=== PATIENT | female | born 1935 | race Caucasian/White ===

== ENCOUNTER 2017-01-14 14:14 | Outpatient (CLI) | payer MEDICARE, OTHER ==
--- NOTE | 2017-01-18 13:05 | DEXA Report ---
REVISED: THIS REPORT WAS ORIGINALLY SIGNED ON 01/24/2017 @ 1030. NO CHANGES WERE MADE TO THE REPORT. THE ORIGINAL [facility] REQUISITION WAS REPRINTED ON . DEXA SCAN: 01/14/2017 INDICATION: Seropositive rheumatoid arthritis. TECHNIQUE: Dual energy x-ray absorptiometry (DXA) was performed on a [employer] system. Regions measured are the AP spine, femoral neck, and, if needed, forearm. COMPARISON: None. In accordance with the International Society for Clinical Densitometry (ISCD) guidelines, data from previous exams may be reanalyzed using current recommendations and techniques. This is done to allow a more accurate basis for comparison with the current study. FINDINGS Data for the lumbar spine is as follows: REGION BMD (g/cm/cm) T-SCORE Z-SCORE L1 0.798 -2.8 -1.5 L2 1.068 -1.1 0.2 L3 1.277 0.6 1.9 L4 1.267 0.6 1.8 TOTAL 1.104 -0.6 0.6 NOTE: All evaluable vertebrae are used for classification. Data for the hip is as follows: REGION BMD (g/cm/cm) T-SCORE Z-SCORE Neck 0.887 -1.1 0.7 TOTAL 0.870 -1.1 0.5 NOTE: The femoral neck or total proximal femur, whichever is lowest, is used for classification. IMPRESSION: THE WHO CLASSIFICATION BASED ON THE INTERNATIONAL REFERENCE STANDARD IS OSTEOPOROSIS. FRACTURE RISK IS HIGH. RECOMMENDATION: Patients with diagnosis of osteoporosis or osteopenia should have regular bone mineral density assessment. For those eligible for Medicare, routine testing is allowed once every 2 years. Testing frequency can be increased for patients who have rapidly progressing disease or for those who are receiving medical therapy to restore bone mass. COMMENT: World Health Organization (WHO) definitions for osteoporosis and osteopenia: NORMAL BMD: T-score at -1.0 or higher, fracture risk is low. OSTEOPENIA BMD: T-score between -1.0 and -2.5, fracture risk is increased. OSTEOPOROSIS BMD: T-score at -2.5 or lower, fracture risk high. National Osteoporosis Foundation recommends: 1. Obtain adequate dietary calcium (at least 1200 mg per day) and vitamin D (400 -800 international units per day). 2. Participate, as appropriate, in regular weightbearing and muscle- strengthening exercise. 3. Avoid tobacco use and reduce alcohol and caffeine intake. 4. For more detailed information see the website at www.NOF.org. MTDD
== END 2017-01-14 14:15 | disposition home or self-care (01) ==
LOC: DI 14:14
PROVIDERS: ATTEND Internal Medicine Rheumatology
DX: M85.88 Other specified disorders of bone density and structure, other site (principal); M05.79 Rheumatoid arthritis with rheumatoid factor of multiple sites without organ or systems involvement; Z79.52 Long term (current) use of systemic steroids
CPT/HCPCS: 77080

== ENCOUNTER 2017-05-30 15:37 | Outpatient (CLI) | payer MEDICARE, OTHER ==
--- NOTE | 2017-05-31 11:02 | XRAY Report ---
TWO VIEW CHEST: 05/30/2017 COMPARISON: Two view chest 01/01/2009. INDICATION: Chronic cough. TECHNIQUE: Two views. FINDINGS: Clear lungs. No pneumothorax or pleural effusion. Mediastinum unremarkable. IMPRESSION: NO EVIDENCE OF ACUTE THORACIC PROCESS. TD: 05/31/2017 11:01 MTDD
== END 2017-05-30 15:38 | disposition home or self-care (01) ==
LOC: DI 15:37
PROVIDERS: ATTEND Nurse Practitioner Family
DX: R05 Cough (principal); R06.02 Shortness of breath
CPT/HCPCS: 71046

== ENCOUNTER 2018-02-17 10:14 | Outpatient (CLI) | payer MEDICARE, OTHER ==
--- NOTE | 2018-02-20 09:51 | DEXA Report ---
Reason: OSTEOPOROSIS Procedure Date: 02/17/2018 Accession Number: [id number] / [id number] Procedure: DEX - Dexa Spine and/or Hip CPT Code: FULL RESULT: EXAM: Dexa Spine and/or Hip DATE: 02/17/2018 10:45 AM CLINICAL HISTORY: OSTEOPOROSIS TECHNIQUE: Dual energy x-ray absorptiometry (DXA) was performed on a [employer] System. Regions measured are the AP Spine, femoral neck, and if needed forearm. COMPARISON: 01/14/2017. In accordance with the International Society for Clinical Densitometry (ISCD) guidelines, data from previous exams may be reanalyzed using current recommendations and techniques. This is done to allow a more accurate basis for comparison with the current study. FINDINGS: The data for the lumbar spine is as follows: BMD (g/cm/cm) T-SCORE Z-SCORE REGION L1 0.769 -3.0 -1.7 L2 1.045 -1.3 0.0 L3 1.216 0.1 1.5 L4 1.202 0.0 1.3 TOTAL 1.057 -1.0 0.3 NOTE: All evaluable vertebrae are used for classification The data for the hip is as follows: BMD (g/cm/cm) T-SCORE Z-SCORE REGION Neck 0.904 -1.0 0.9 TOTAL 0.870 -1.1 0.6 NOTE: The femoral neck or total proximal femur, whichever is lowest, is used for classification. DXA RESULTS SUMMARY: Spine SCAN DATE AGE BMD CHANGE VS CHANGE VS PREVIOUS PREVIOUS % 02[age]17/2018 [age] 1.057 -0.047* -4.3* 01/14/2017 [age] 1.104 * Denotes significant change at the 95% confidence level. Denotes dissimilar scan types or analysis methods. DXA RESULTS SUMMARY: Hip SCAN DATE AGE BMD CHANGE VS CHANGE VS PREVIOUS PREVIOUS % [birth year]/2018 82.5 0.870 0.000 0.0 01/14/2017 81.4 0.870 * Denotes significant change at the 95% confidence level. Denotes dissimilar scan types or analysis methods. IMPRESSION: THE WHO CLASSIFICATION BASED ON THE INTERNATIONAL REFERENCE STANDARD IS OSTEOPENIA. THE FRACTURE RISK IS INCREASED. RECOMMENDATION: Patients with diagnosis of osteoporosis or osteopenia should have regular bone mineral density assessment. For those eligible for Medicare, routine testing is allowed once every 2 years. Testing frequency can be increased for patients who have rapidly progressing disease or for those who are receiving medical therapy to restore bone mass. COMMENT: World Health Organization (WHO) definitions for osteoporosis and osteopenia: NORMAL BMD: T-score at -1.0 or higher, fracture risk is low OSTEOPENIA BMD: T-score between -1.0 and -2.5, fracture risk is increased. OSTEOPOROSIS BMD: T-score at -2.5 or lower, fracture risk is high. National Osteoporosis Foundation recommends: 1. Obtain adequate dietary calcium (at least 1200 mg per day) and vitamin D (400-800 international units per day). 2. Participate, as appropriate, in regular weightbearing and muscle-strengthening exercise. 3. Avoid tobacco use and reduce alcohol and caffeine intake. 4. For more detailed information see the website at www.NOF.org.
== END 2018-02-17 10:15 | disposition home or self-care (01) ==
LOC: DI 10:14
PROVIDERS: ATTEND Internal Medicine
DX: M85.89 Other specified disorders of bone density and structure, multiple sites (principal)
CPT/HCPCS: 77080

== ENCOUNTER 2019-01-22 14:28 | Outpatient (CLI) | payer MEDICARE, OTHER ==
--- NOTE | 2019-01-22 15:34 | XRAY Report ---
Reason: COUGH Procedure Date: 01/22/2019 Accession Number: [id number] / [id number] Procedure: XR - Chest 2 View X-Ray CPT Code: 27110 Final Report FULL RESULT: EXAM: CHEST RADIOGRAPHY EXAM DATE: 01/22/2019 02:40 PM. CLINICAL HISTORY: COUGH. COMPARISON: CHEST 2 VIEW 05/30/2017 3:47 PM. TECHNIQUE: 2 views. FINDINGS: Lungs/Pleura: No focal opacities evident. No pleural effusion. No pneumothorax. Normal volumes. Mediastinum: Heart and mediastinal contours are stable and not enlarged accounting for differences in technique. Other: None. IMPRESSION: No definite acute airspace disease is detected. RADIA
== END 2019-01-22 14:29 | disposition home or self-care (01) ==
LOC: DI 14:28
PROVIDERS: ATTEND Internal Medicine
DX: R05 Cough (principal)
CPT/HCPCS: 71046

== ENCOUNTER 2019-08-30 13:21 | Outpatient (CLI) | payer MEDICARE, OTHER | END 2019-08-30 13:22 | disposition home or self-care (01) | LOC: DI 13:21 | PROVIDERS: ATTEND Internal Medicine | DX: R01.1 Cardiac murmur, unspecified (principal) | CPT/HCPCS: 93306 ==

== ENCOUNTER 2020-05-16 15:21 | Outpatient (CLI) | payer MEDICARE, OTHER | END 2020-05-16 15:22 | disposition home or self-care (01) | LOC: COV 15:21 | PROVIDERS: ATTEND Ophthalmology Ophthalmic Plastic and Reconstructive Surgery | DX: Z01.812 Encounter for preprocedural laboratory examination (principal); Z20.822 Contact with and (suspected) exposure to COVID-19 ==

== ENCOUNTER 2020-08-07 08:00 | Outpatient (CLI) | payer MEDICARE, OTHER ==
--- NOTE | 2020-08-07 15:53 | XRAY Report ---
PROCEDURE: Wrist 3 View RT INDICATIONS: RIGHT WRIST PAIN TECHNIQUE: 3 views of the wrist were acquired. COMPARISON: None. FINDINGS: Bones: No fractures or dislocations. No suspicious bony lesions. Diffuse osteopenia. There is bony erosion at the distal radial ulnar joint. There is moderate to severe joint space narrowing at the r adiocarpal joint, triscaphe joint and first carpal metacarpal joint, and the second third, fourth, fi fth metacarpal phalangeal joints. Soft tissues: There are vascular and soft tissue calcifications over the lateral aspect of the wrist. Soft tissue swelling. IMPRESSION: 1. Moderate to severe joint space narrowing compatible with osteoarthritis. There is erosion at the d istal radial ulnar joint, suggesting inflammatory arthritis chest erosive OA. 2. Osteopenia. 3. Vascular calcifications consistent with atherosclerosis. 4. Soft tissue calcifications over the lateral aspect of the wrist. Reviewed by: Shilpa Hector MD on 08/07/2020 3:51 PM PDT Approved by: Shilpa Hector MD on 08/07/2020 3:51 PM PDT Station ID: [id number]
== END 2020-08-07 23:59 | disposition home or self-care (01) ==
LOC: DI.S 08:00
PROVIDERS: ATTEND Physician Assistant Medical
DX: M19.031 Primary osteoarthritis, right wrist (principal); M85.88 Other specified disorders of bone density and structure, other site; I70.208 Unspecified atherosclerosis of native arteries of extremities, other extremity; R93.6 Abnormal findings on diagnostic imaging of limbs

== ENCOUNTER 2020-09-24 08:00 | Outpatient (CLI) | payer MEDICARE, OTHER ==
[2020-09-24 15:13] LABS: BASOPHILS % (AUTO) 0.5 %; EOSINOPHILS # (AUTO) 0.1 10^3/uL (0.0-0.7); EOSINOPHILS % (AUTO) 1.2 %; HCT - HEMATOCRIT 46.5 % (37.0-47.0); LYMPHOCYTES # (AUTO) 1.3 10^3/uL (1.5-3.5); LYMPHOCYTES % (AUTO) 21.9 %; MEAN CORPUSCULAR HEMOGLOBIN 30.5 pg (27.0-31.0); MEAN CORPUSCULAR HGB CONC 32.3 g/dL (32.0-36.0); MEAN CORPUSCULAR VOLUME 94.7 fL (81.0-99.0); MEAN PLATELET VOLUME 9.8 fL (7.9-10.8); MONOCYTES # (AUTO) 0.4 10^3/uL (0.0-1.0); MONOCYTES % (AUTO) 7.3 %; NEUTROPHILS # (AUTO) 3.9 10^3/uL (1.5-6.6); NEUTROPHILS % (AUTO) 68.8 %; PLT - PLATELET COUNT 231 10^3/uL (130-450); RED BLOOD COUNT 4.91 10^6/uL (4.20-5.40); RED CELL DISTRIBUTION WIDTH 13.6 % (12.0-15.0); WHITE BLOOD COUNT 5.7 x10^3/uL (4.8-10.8)
[2020-09-24 15:31] LABS: ALBUMIN 4.4 g/dL (3.2-5.5); ALBUMIN/GLOBULIN RATIO 1.8 (1.0-2.2); BILIRUBIN,TOTAL 0.9 mg/dL (0.2-1.0); CALCIUM 9.1 mg/dL (8.5-10.3); CREATININE 0.6 mg/dL (0.4-1.0); POTASSIUM 3.7 mmol/L (3.5-5.0); TOTAL PROTEIN 6.9 g/dL (6.7-8.2)
== END 2020-09-24 23:59 | disposition home or self-care (01) ==
LOC: LAB.S 08:00
PROVIDERS: ATTEND Emergency Medicine
DX: I10 Essential (primary) hypertension (principal); R00.2 Palpitations
CPT/HCPCS: 36415; 80053; 85025

== ENCOUNTER 2020-10-19 20:44 | Emergency (ER) | payer MEDICARE, OTHER ==
[2020-10-19 21:08] VITALS: BP 190/99
[2020-10-19] MEDS ORDERED: BUFFERED LIDOCAINE 10 ML SYRINGE SUBQ STA (21:41)
[2020-10-19] MEDS ORDERED: BACITRACIN ZINC OINT 1 PACKET TOP STA (22:24)
[2020-10-19] MEDS ORDERED: cephALEXin 250 MG CAPSULE PO STA (22:28)
[2020-10-19] MEDS ORDERED: TETANUS/DIPHTHERIA/PERTUSSIS 0.5 ML SYRINGE IM ONE (22:28)
--- NOTE | 2020-10-19 22:30 | ED Physician Documentation ---
PD HPI UPPER EXT INJURY - Stated complaint Stated Complaint: LT FINGER INJ - Chief complaint Chief Complaint: Ext Problem - History obtained from History obtained from: Patient - History of Present Illness Location: Left, Finger (index) Type of injury: Laceration Where injury occurred: Other (car door slammed on finger) Timing - onset: Today Timing - duration: Hours (1) Timing - details: Abrupt onset Pain level max: 5 Pain level now: 5 Improved by: Rest, Ice, Immobilization Worsened by: Moving, Palpating Associated symptoms: No: Weakness, Numbness, Tingling, Swelling Recently seen: Not recently seen - Additonal information Additional information: L index finger crushed in car door, laceration. Review of Systems Constitutional: denies: Fever, Chills Nose: denies: Rhinorrhea / runny nose, Congestion : denies: Dysuria Skin: denies: Rash PD PAST MEDICAL HISTORY - Past Medical History Past Medical History: Yes - Present Medications Home Medications: Ambulatory Orders Medication Instructions Recorded Confirmed cephALEXin [Keflex] 500 mg PO Q6H #20 cap 10/19/20 - Allergies Allergies/Adverse Reactions: Allergies Allergy/AdvReac Type Severity Reaction Status Date / Time No Known Drug Allergies Allergy Verified 10/19/20 21:07 - Social History Does the pt smoke?: No Smoking Status: Never smoker Does the pt drink ETOH?: No Does the pt have substance abuse?: No - Immunizations Immunizations are current?: Yes - POLST Patient has POLST: No PD ED PE NORMAL - Vitals Vital signs reviewed: Yes - General General: Alert and oriented X 3, No acute distress - HEENT HEENT: Moist mucous membranes - Neck Neck: Supple, no meningeal sign - Derm Derm: Warm and dry - Extremities Extremities: Other (L index finger, swelling, laceration to distal phalanx, pad of finger. NVI. no nail injury) - Neuro Neuro: Alert and oriented X 3 Results - Vitals Vitals: Oxygen O2 Source Room air - Rads (name of study) L index finger Radiology: Final report received, EMP read contemporaneously, See rad report (tuft fracture. ) Procedures - Laceration (location) L index finger Length in cm: 1.5 Wound type: Linear, Into subcut fat Neurovascular status: Sensory intact, Motor intact, Vascular intact Anesthesia: Lidocaine 1% (transthecal block) Wound preparation: Irrigated copiously NS, Wound explored, To the base Skin layer closure: Nylon, Interrupted, Size #-0 - enter number (4) Other: Patient tolerated well, No complications, Neurovascular intact, Tetanus booster given PD MEDICAL DECISION MAKING - ED course Complexity details: considered differential, d/w patient ED course: Laceration repaired. Tdap given. Will place on Keflex for the fracture. We will have her follow-up with her doctor for suture removal and wound check. Patient counseled regarding signs and symptoms for which I believe and urgent re-evaluation would be necessary. Patient with good understanding of and agreement to plan and is comfortable going home at this time This document was made in part using voice recognition software. While efforts are made to proofread this document, sound alike and grammatical errors may occur. Departure - Departure Disposition: 01 Home, Self Care Clinical Impression: Finger laceration Qualifiers: Encounter type: initial encounter Finger: index finger Damage to nail status: without damage Foreign body presence: without foreign body Laterality: left Qualified Code(s): S61.211A - Laceration without foreign body of left index finger without damage to nail, initial encounter Finger fracture, left Qualifiers: Encounter type: initial encounter Finger: index finger Fracture type: open Phalanx: distal Fracture alignment: displaced Qualified Code(s): S62.631B - Displaced fracture of distal phalanx of left index finger, initial encounter for open fracture Condition: Good Instructions: ED Fx Finger Closed, ED Laceration Hand Follow-Up: Ortiz Ware MD [Primary Care Provider] - (in 10-14 days for suture removal.) Prescriptions: cephALEXin [Keflex] 500 mg PO Q6H #20 cap Comments: Take all antibiotics until gone. Follow-up with your doctor in about 10 to 14 days for suture removal and recheck of the wound/fracture. Return if you worsen. Keep the wound clean. Return for redness, swelling or drainage from the wound. Discharge Date/Time: 10/19/20 23:15
--- NOTE | 2020-10-23 15:14 | XRAY Report ---
PROCEDURE: Left finger INDICATIONS: INJURY TO FINGER TECHNIQUE: AP hand, 2 views of the second finger(s) acquired. COMPARISON: None FINDINGS: Bones: Extensive changes of degenerative arthritis involving multiple joints in the hand, including t he second MCP joint, second DIP joint, third PIP and DIP joint, fourth PIP joint, and fifth PIP and D IP joints. Associated periarticular soft tissue calcifications. Distal tuft fracture of distal phalan x of second finger. No suspicious bony lesions. Soft tissues: No suspicious soft tissue calcifications. IMPRESSION: Extensive changes of degenerative arthritis of the hand. Distal tuft fracture of distal phalanx of se cond finger. Above discussed with the emergency department for DANIELLE HERNANDEZ at the time of dictation. Reviewed by: Shahid Kaminski MD on 10/19/2020 10:21 PM PDT Approved by: Shahid Kaminski MD on 10/19/2020 10:21 PM PDT Station ID: [id number]
== END 2020-10-19 23:15 | disposition home or self-care (01) ==
LOC: ED 20:44
DX: S62.631B Displaced fracture of distal phalanx of left index finger, initial encounter for open fracture (principal); W23.1XXA Caught, crushed, jammed, or pinched between stationary objects, initial encounter; Y92.810 Car as the place of occurrence of the external cause
CPT/HCPCS: 12001; 90471; 99283; 99284

== ENCOUNTER 2020-11-08 13:00 | Outpatient (CLI) | payer MEDICARE, OTHER | END 2020-11-08 23:59 | disposition home or self-care (01) | LOC: LAB.S 13:00 | PROVIDERS: ATTEND Physician Assistant | DX: R39.9 Unspecified symptoms and signs involving the genitourinary system (principal) | CPT/HCPCS: 87086; 87181 ==

== ENCOUNTER 2021-02-17 13:11 | Outpatient (CLI) | payer MEDICARE, OTHER ==
--- NOTE | 2021-02-17 14:18 | XRAY Report ---
PROCEDURE: Hip w/Pelvis 2-3V LT INDICATIONS: PAIN OF LEFT HIP JOINT TECHNIQUE: AP pelvis with lateral view(s) of the left hip(s). COMPARISON: None. FINDINGS: Bones: No fractures or dislocations. Pelvic ring appears intact. No suspicious bony lesions. Mild left hip degenerative change. Soft tissues: The visualized bowel gas pattern is normal. No suspicious soft tissue calcifications. IMPRESSION: No evidence acute bony abnormality of the pelvis and left hip. If clinical suspicion and/or symptoms persist, further assessment with repeat plain films or advanced imaging (e.g., CT, MRI, or bone scan) may be helpful for further assessment. Reviewed by: Shahid Kaminski MD on 02/17/2021 2:17 PM PST Approved by: Shahid Kaminski MD on 02/17/2021 2:17 PM PST Station ID: [id number]
== END 2021-02-17 13:12 | disposition home or self-care (01) ==
LOC: DI.S 13:11
PROVIDERS: ATTEND Internal Medicine
DX: M25.552 Pain in left hip (principal)

== ENCOUNTER 2021-05-27 08:00 | Outpatient (CLI) | payer MEDICARE, OTHER ==
[2021-05-27 15:23] LABS: BILIRUBIN,URINE NEGATIVE (NEGATIVE); GLUCOSE, URINE (UA) NEGATIVE (NEGATIVE); KETONES,URINE (UA) TRACE mg/dL (NEGATIVE); LEUKOCYTE ESTERASE, URINE SMALL (NEGATIVE); NITRITE,URINE NEGATIVE (NEGATIVE); OCCULT BLOOD,URINE NEGATIVE (NEGATIVE); PROTEIN,URINE 30 mg/dL (NEGATIVE); UROBILINOGEN,URINE 0.2 (NORMAL) E.U./dL (NORMAL)
[2021-05-27 15:44] LABS: BACTERIA,URINE Rare /HPF (None Seen); CLARITY,URINE CLEAR (CLEAR); MUCUS,URINE Few Strands; RBC,URINE 0-5 /HPF (0-5); SQUAMOUS EPITHELIAL CELL,UR RARE Squamous (<= Few); WBC,URINE >25 /HPF (0-5)
== END 2021-05-27 23:59 | disposition home or self-care (01) ==
LOC: LAB.S 08:00
PROVIDERS: ATTEND Emergency Medicine
DX: N39.0 Urinary tract infection, site not specified (principal)
CPT/HCPCS: 81001; 87086; 87181

== ENCOUNTER 2021-09-15 09:23 | Outpatient (CLI) | payer MEDICARE, OTHER ==
[2021-09-15 14:07] LABS: BASOPHILS # (AUTO) 0.1 10^3/uL (0.0-0.1); BASOPHILS % (AUTO) 0.9 %; EOSINOPHILS # (AUTO) 0.2 10^3/uL (0.0-0.7); EOSINOPHILS % (AUTO) 2.8 %; HGB - HEMOGLOBIN 14.4 g/dL (12.0-16.0); LYMPHOCYTES # (AUTO) 1.3 10^3/uL (1.5-3.5); LYMPHOCYTES % (AUTO) 23.6 %; MEAN CORPUSCULAR HGB CONC 32.7 g/dL (32.0-36.0); MEAN CORPUSCULAR VOLUME 94.6 fL (81.0-99.0); MEAN PLATELET VOLUME 9.9 fL (7.9-10.8); MONOCYTES # (AUTO) 0.4 10^3/uL (0.0-1.0); MONOCYTES % (AUTO) 7.1 %; NEUTROPHILS # (AUTO) 3.5 10^3/uL (1.5-6.6); NEUTROPHILS % (AUTO) 65.2 %; PLT - PLATELET COUNT 243 10^3/uL (130-450); RED BLOOD COUNT 4.65 10^6/uL (4.20-5.40); RED CELL DISTRIBUTION WIDTH 13.5 % (12.0-15.0); WHITE BLOOD COUNT 5.3 x10^3/uL (4.8-10.8)
[2021-09-15 14:19] LABS: ALBUMIN 4.1 g/dL (3.2-5.5); ALBUMIN/GLOBULIN RATIO 1.9 (1.0-2.2); BILIRUBIN,TOTAL 0.6 mg/dL (0.2-1.0); CALCIUM 8.9 mg/dL (8.5-10.3); CREATININE 0.8 mg/dL (0.4-1.0); POTASSIUM 3.7 mmol/L (3.5-5.0); TOTAL PROTEIN 6.3 g/dL (6.7-8.2)
[2021-09-15 14:37] LABS: THYROID STIMULATING HORMONE 0.61 uIU/mL (0.34-5.60)
[2021-09-15 14:48] LABS: FOLATE 6.74 ng/mL (5.90 - >24.8)
== END 2021-09-15 09:24 | disposition home or self-care (01) ==
LOC: LAB.S 09:23
PROVIDERS: ATTEND Nurse Practitioner Family
DX: R53.83 Other fatigue (principal)
CPT/HCPCS: 36415; 80053; 82607; 82746; 84443; 85025

== ENCOUNTER 2023-02-11 08:00 | Outpatient (CLI) | payer MEDICARE, OTHER ==
--- NOTE | 2023-02-11 16:01 | XRAY Report ---
PROCEDURE: Knee 3 View RT INDICATIONS: RIGHT KNEE CONTUSION TECHNIQUE: 3 views of the knee(s) were acquired. COMPARISON: Right knee x-ray 10/13/2012. FINDINGS: Bones: No fractures or dislocations. Tricompartment osteoarthritic changes of the knee with margina l spurring and moderate joint space narrowing. No suspicious bony lesions. Soft tissues: Small knee joint effusion. No suspicious soft tissue calcifications or masses. Chondro calcinosis IMPRESSION: 1.No acute osseous or masses. 2.Moderate osteoarthritic changes of the knee. 3.Chondrocalcinosis, can be seen with CPPD and hemachromatosis among other etiologies. Reviewed by: Phil Liao MD on 02/11/2023 3:59 PM PST Approved by: Phil Liao MD on 02/11/2023 3:59 PM PST Station ID: [id number]
== END 2023-02-11 23:59 | disposition home or self-care (01) ==
LOC: DI.S 08:00
PROVIDERS: ATTEND Emergency Medicine
DX: M17.11 Unilateral primary osteoarthritis, right knee (principal); M11.261 Other chondrocalcinosis, right knee